=== PATIENT | female | born 1995 | race Caucasian/White ===

== ENCOUNTER 2025-05-09 05:17 | Emergency (ER) | payer BC, OTHER | END 2025-05-09 06:11 | disposition home or self-care (01) | LOC: JD.ED 05:17 | DX: J30.2 Other seasonal allergic rhinitis (principal); B34.9 Viral infection, unspecified; Z91.048 Other nonmedicinal substance allergy status; Z79.899 Other long term (current) drug therapy | CPT/HCPCS: 99283; J8540 ==